=== PATIENT | female | born 1960 | race Caucasian/White ===

== ENCOUNTER 2023-10-21 09:39 | Outpatient (CLI) | payer BC | END 2023-10-21 09:40 | disposition home or self-care (01) | LOC: BICMRI 09:39 | PROVIDERS: ATTEND Internal Medicine Hematology & Oncology | DX: C50.811 Malignant neoplasm of overlapping sites of right female breast (principal); Z90.11 Acquired absence of right breast and nipple | CPT/HCPCS: 82565; A9577; C8908 ==

== ENCOUNTER 2024-04-18 13:34 | Outpatient (CLI) | payer BC | END 2024-04-18 13:35 | disposition home or self-care (01) | LOC: BICMAMMO 13:34 | PROVIDERS: ATTEND Internal Medicine Hematology & Oncology | DX: Z08 Encounter for follow-up examination after completed treatment for malignant neoplasm (principal); Z85.3 Personal history of malignant neoplasm of breast | CPT/HCPCS: G0279 ==

== ENCOUNTER 2024-10-20 09:37 | Outpatient (CLI) | payer BC | END 2024-10-20 09:38 | disposition home or self-care (01) | LOC: BICMRI 09:37 | PROVIDERS: ATTEND Internal Medicine Hematology & Oncology | DX: C50.811 Malignant neoplasm of overlapping sites of right female breast (principal) | CPT/HCPCS: 36415; 82565; A9577; C8908 ==

== ENCOUNTER 2025-09-14 16:11 | Outpatient (CLI) | payer BC | END 2025-09-14 16:12 | disposition home or self-care (01) | LOC: SCSBT 16:11 | PROVIDERS: ATTEND Family Medicine | DX: C50.811 Malignant neoplasm of overlapping sites of right female breast (principal) | CPT/HCPCS: 77080 ==